=== PATIENT | male | born 1970 | race Caucasian/White ===

== ENCOUNTER 2019-01-29 13:53 | Emergency (ER) | payer MEDICAID, MEDICARE ==
[2019-01-29 14:15] VITALS: BP 145/85
--- NOTE | 2019-01-29 14:27 | ED Physician Documentation ---
PD HPI UPPER EXT INJURY - Stated complaint Stated Complaint: WRIST PX - Chief complaint Chief Complaint: Ext Problem - History obtained from History obtained from: Family - History of Present Illness Location: Right (Left-handed gentleman had a blunt force injury to the anterior right wrist on the radial side about 4 days ago while working on something. He has increasing pain there that radiates up towards the lateral epicondyle of the left elbow with certain motions. No other injuries. He declines pain medication.) Review of Systems Constitutional: reports: Reviewed and negative Ears: reports: Reviewed and negative Nose: reports: Reviewed and negative PD PAST MEDICAL HISTORY - Past Medical History Past Medical History: No - Present Medications Home Medications: Ambulatory Orders Medication Instructions Recorded Confirmed Dicyclomine [Bentyl] 20 mg PO QID PRN #15 capsule 01/29/19 - Allergies Allergies/Adverse Reactions: Allergies Allergy/AdvReac Type Severity Reaction Status Date / Time No Known Drug Allergies Allergy Verified 01/29/19 14:15 - Family History Family history: reports: Non contributory PD ED PE NORMAL - Vitals Vital signs reviewed: Yes - General General: Alert and oriented X 3, No acute distress - Extremities Extremities: Other (Right distal radius is tender but without limited range of motion, neurovascular compromise, or swelling or ecchymosis at this juncture.) - Neuro Neuro: Alert and oriented X 3, Normal speech Results - Vitals Vitals: Vital Signs - 24 hr 01/29/19 14:11 Temperature 37.1 C Heart Rate 100 Respiratory 14 Rate Blood Pressure 145/85 H O2 Saturation 95 Oxygen O2 Source Room air - Rads (name of study) R wrist 4v Radiology: EMP read contemporaneously (normal) PD MEDICAL DECISION MAKING - ED course ED course: Ancillary complaints of abdominal cramping after eating meat yesterday. Its intermittent and generalized. On examination he was nontender. He was advised to return immediately if it becomes constant, settles into 1 spots or worsens. Or if not better in the next 12 hours. Departure - Departure Disposition: 01 Home, Self Care Clinical Impression: Contusion of right wrist Qualifiers: Encounter type: initial encounter Qualified Code(s): S60.211A - Contusion of right wrist, initial encounter Condition: Good Record reviewed to determine appropriate education?: Yes Instructions: ED Splint Care Velcro, ED Sprain Wrist Prescriptions: Dicyclomine [Bentyl] 20 mg PO QID PRN #15 capsule PRN Reason: Abdominal Pain Comments: Wear the splint as needed for comfort, you do not have to wear it all the time. Ibuprofen as needed for pain. Follow-up with your doctor in a week or 2 if not improved. Your blood pressure was elevated today on check into the emergency department. This does not mean that you have hypertension, it is a common phenomenon to come to the emergency department and have elevated blood pressure. I recommend that you see your primary care physician within the week to have it rechecked when you are feeling better.
--- NOTE | 2019-01-29 15:06 | XRAY Report ---
Reason: wrist inj Procedure Date: 01/29/2019 Accession Number: [id number] / [id number] Procedure: XR - Wrist 4 View RT CPT Code: FULL RESULT: EXAM: RIGHT WRIST RADIOGRAPHY. EXAM DATE: 01/29/2019 02:54 PM. CLINICAL HISTORY: Wrist injury. COMPARISON: None. TECHNIQUE: 4 views. FINDINGS: Bones: Normal. No fractures or bone lesions. Scaphoid appears intact on dedicated views. Joints: Normal. No subluxations. Soft Tissues: Normal. No soft tissue swelling. IMPRESSION: Normal wrist radiography. [facility]
[2019-01-29] MEDS ORDERED: DICYCLOMINE 10 MG CAPSULE PO STA (15:11)
== END 2019-01-29 15:22 | disposition home or self-care (01) ==
LOC: ED 13:53
DX: S60.211A Contusion of right wrist, initial encounter (principal); W22.8XXA Striking against or struck by other objects, initial encounter; R10.84 Generalized abdominal pain; R03.0 Elevated blood-pressure reading, without diagnosis of hypertension
CPT/HCPCS: 73110; 99283; A9270

== ENCOUNTER 2019-05-11 11:35 | Emergency (ER) | payer MEDICAID, MEDICARE ==
[2019-05-11 11:50] VITALS: BP 115/81
--- NOTE | 2019-05-11 12:23 | ED Physician Documentation ---
PD HPI WOUND RECHECK - Stated complaint Stated Complaint: R ARM BITE-SWELLING HOT - Chief complaint Chief Complaint: Wound - Histroy obtained from History obtained from: Patient - History of Present Illness Location: Right Upper Extremity (Healthy 49-year-old gentleman got a bug bite that was initially itchy and now more painful to the right elbow yesterday. No fevers or chills. He did not really see anything get him.) Review of Systems Constitutional: denies: Fever, Chills Throat: reports: Reviewed and negative Cardiac: reports: Reviewed and negative Respiratory: reports: Reviewed and negative PD PAST MEDICAL HISTORY - Past Surgical History Past Surgical History: No - Present Medications Home Medications: Ambulatory Orders Medication Instructions Recorded Confirmed Cephalexin [Keflex] 500 mg PO Q6H #28 capsule 05/11/19 predniSONE [Deltasone] 60 mg PO DAILY 5 Days tablet 05/11/19 - Allergies Allergies/Adverse Reactions: Allergies Allergy/AdvReac Type Severity Reaction Status Date / Time No Known Drug Allergies Allergy Verified 05/11/19 11:49 - Social History Does the pt smoke?: Yes Smoking Status: Current every day smoker Does the pt drink ETOH?: No Does the pt have substance abuse?: No PD ED PE NORMAL - Vitals Vital signs reviewed: Yes - General General: Alert and oriented X 3, No acute distress - Derm Derm: Other (He is very well tattooed on the upper extremities, making subtle skin differentiation somewhat difficult. There is a little scab between the right olecranon and lateral epicondyle with some surrounding warmth and potentially redness. No limited range of motion or obvious olecranon bursitis.) - Neuro Neuro: Alert and oriented X 3, Normal speech Results - Vitals Vitals: Vital Signs - 24 hr 05/11/19 11:47 Temperature 36.2 C L Heart Rate 83 Respiratory 18 Rate Blood Pressure 115/81 H O2 Saturation 96 Oxygen O2 Source Room air PD MEDICAL DECISION MAKING - ED course ED course: This is most likely a mosquito bite or infected bug bite, we will treat with steroids and Keflex. No evidence of serious or systemic illness. Departure - Departure Disposition: 01 Home, Self Care Clinical Impression: Nonvenomous bug bite of shoulder or upper arm, infected Qualifiers: Encounter type: initial encounter Laterality: right Qualified Code(s): S40.261A - Insect bite (nonvenomous) of right shoulder, initial encounter; S40.861A - Insect bite (nonvenomous) of right upper arm, initial encounter; L08.9 - Local infection of the skin and subcutaneous tissue, unspecified; W57.XXXA - Bitten or stung by nonvenomous insect and other nonvenomous arthropods, initial encounter Condition: Good Record reviewed to determine appropriate education?: Yes Instructions: ED Infec Skin Cellulitis Prescriptions: Cephalexin [Keflex] 500 mg PO Q6H #28 capsule predniSONE [Deltasone] 60 mg PO DAILY 5 Days tablet Comments: Return immediately for any fevers or limited range of motion of the arm or if worse. Follow-up with your doctor early next week if not better. Your blood pressure was elevated today on check into the emergency department. This does not mean that you have hypertension, it is a common phenomenon to come to the emergency department and have elevated blood pressure. I recommend that you see your primary care physician within the week to have it rechecked when you are feeling better.
== END 2019-05-11 12:31 | disposition home or self-care (01) ==
LOC: ED 11:35
DX: S40.861A Insect bite (nonvenomous) of right upper arm, initial encounter (principal); L08.9 Local infection of the skin and subcutaneous tissue, unspecified; W57.XXXA Bitten or stung by nonvenomous insect and other nonvenomous arthropods, initial encounter; R03.0 Elevated blood-pressure reading, without diagnosis of hypertension; F17.200 Nicotine dependence, unspecified, uncomplicated
CPT/HCPCS: 99282; 99283

== ENCOUNTER 2019-09-15 23:17 | Emergency (ER) | payer MEDICAID, MEDICARE ==
[2019-09-15 23:25] VITALS: BP 126/78
--- NOTE | 2019-09-16 00:38 | ED Physician Documentation ---
PD HPI URI - Stated complaint Stated Complaint: L EAR PX/COLD - Chief complaint Chief Complaint: Heent - History obtained from History obtained from: Patient - History of Present Illness Timing - onset: How many days ago (2) Timing duration: Days (2) Timing details: Gradual onset, Still present Associated symptoms: Fever, Ear pain (the past several hours), Nasal congestion, Sinus pain (more to the left), Dry cough Contributing factors: No: Sick contact, Unimmunized Similar symptoms before: Has not had sx before Recently seen: Not recently seen Review of Systems Constitutional: reports: Chills, Myalgias. denies: Fever Ears: reports: Ear pain (today) Nose: reports: Rhinorrhea / runny nose, Congestion, Sinus pressure / pain Throat: denies: Sore throat Respiratory: reports: Cough GI: denies: Nausea, Vomiting, Diarrhea PD PAST MEDICAL HISTORY - Past Medical History Past Medical History: No - Past Surgical History Past Surgical History: Yes Ortho: ACL reconstruction, Rotator cuff repair - Present Medications Home Medications: Ambulatory Orders Medication Instructions Recorded Confirmed Cetirizine [ZyrTEC] 10 mg PO DAILY #15 tablet 09/16/19 dexAMETHasone [Decadron] 4 mg PO DAILY #5 tablet 09/16/19 diphenhydrAMINE [Benadryl] 25 mg PO Q4-6H PRN #20 capsule 09/16/19 - Allergies Allergies/Adverse Reactions: Allergies Allergy/AdvReac Type Severity Reaction Status Date / Time No Known Drug Allergies Allergy Verified 09/15/19 23:24 - Social History Does the pt smoke?: Yes Smoking Status: Current every day smoker Does the pt drink ETOH?: No Does the pt have substance abuse?: No - Immunizations Immunizations are current?: No PD ED PE NORMAL - Vitals Vital signs reviewed: Yes - General General: Alert and oriented X 3, No acute distress, Well developed/nourished - HEENT HEENT: Pharynx benign. No: Ears normal (fluid behind with pressure appearance, but no redness. ) - Neck Neck: Supple, no meningeal sign, No adenopathy - Cardiac Cardiac: RRR, No murmur - Respiratory Respiratory: Clear bilaterally - Abdomen Abdomen: Normal bowel sounds, Soft - Derm Derm: Normal color, Warm and dry Results - Vitals Vitals: Vital Signs - 24 hr 09/15/19 23:20 Temperature 36.5 C Heart Rate 81 Respiratory 18 Rate Blood Pressure 126/78 O2 Saturation 97 Oxygen O2 Source Room air PD MEDICAL DECISION MAKING - ED course Complexity details: considered differential (URI symptoms with serous otitis. No obvious bacterial infection.), d/w patient Departure - Departure Disposition: 01 Home, Self Care Clinical Impression: Upper respiratory infection Qualifiers: URI type: unspecified URI Qualified Code(s): J06.9 - Acute upper respiratory infection, unspecified Acute serous otitis media Qualifiers: Laterality: left Recurrence: non-recurrent Qualified Code(s): H65.02 - Acute serous otitis media, left ear Condition: Stable Record reviewed to determine appropriate education?: Yes Instructions: ED Otitis Media Serous Adult Follow-Up: YONAS CUI MD [Primary Care Provider] - Prescriptions: Cetirizine [ZyrTEC] 10 mg PO DAILY #15 tablet dexAMETHasone [Decadron] 4 mg PO DAILY #5 tablet diphenhydrAMINE [Benadryl] 25 mg PO Q4-6H PRN #20 capsule PRN Reason: Cough Comments: There is fluid and pressure behind the eardrum but it does not look like a separate infection. Presume its pressure buildup from the head cold and improper drainage through the sinus and eustachian tube. Use cetirizine antihistamine daily and Decadron steroid daily for the next 5 days. Perhaps even longer with the cetirizine antihistamine. In the short-term add diphenhydramine antihistamine every 4-6 hours for congestion and cough. Tylenol and/or ibuprofen for pains. The fluid in pressure should decrease over the next day or so with the medicines. Discharge Date/Time: 09/16/19 01:22
[2019-09-16] MEDS ORDERED: ACETAMINOPHEN 325 MG TABLET PO STA (00:51)
[2019-09-16] MEDS ORDERED: CHERRY SYRUP 10 ML UDC PO ONE (00:51)
[2019-09-16] MEDS ORDERED: CETIRIZINE 10 MG TABLET PO STA (00:51)
[2019-09-16] MEDS ORDERED: IBUPROFEN 600 MG TABLET PO STA (00:51)
[2019-09-16] MEDS ORDERED: diphenhydrAMINE 25 MG CAPSULE PO STA (00:51)
[2019-09-16] MEDS ORDERED: DEXAMETHASONE 10 MG/ML VIAL PO STA (00:51)
== END 2019-09-16 01:22 | disposition home or self-care (01) ==
LOC: ED 23:17
DX: J06.9 Acute upper respiratory infection, unspecified (principal); H65.02 Acute serous otitis media, left ear; F17.200 Nicotine dependence, unspecified, uncomplicated
CPT/HCPCS: 99283; 99284; A9270

== ENCOUNTER 2019-12-03 07:51 | Emergency (ER) | payer MEDICAID, MEDICARE ==
[2019-12-03] MEDS ORDERED: ONDANSETRON 4 MG/2 ML VIAL IVP STA (08:11)
[2019-12-03] MEDS ORDERED: KETOROLAC 30 MG/ML VIAL IVP STA (08:11)
[2019-12-03] MEDS ORDERED: SODIUM CHLORIDE 0.9% 1,000 ML IV ONE (08:11)
[2019-12-03] MEDS ORDERED: LOPERAMIDE 2 MG CAPSULE PO STA (08:15)
--- NOTE | 2019-12-03 08:16 | ED Physician Documentation ---
PD HPI NVD - Stated complaint Stated Complaint: ABD PX - Chief complaint Chief Complaint: Abd Pain - History obtained from History obtained from: Patient (Otherwise healthy 49-year-old gentleman became acutely sick last night with stomach cramps and diarrhea. Same time as his geylunph-ai-smi got sick with gastroenteritis. He denies fevers, recent travel, respiratory symptoms. He has no underlying health issues.) Review of Systems Constitutional: reports: Sweats. denies: Fever, Chills Throat: denies: Sore throat Cardiac: denies: Chest pain / pressure, Palpitations Respiratory: denies: Dyspnea, Cough PD PAST MEDICAL HISTORY - Past Surgical History Past Surgical History: Yes Ortho: ACL reconstruction, Rotator cuff repair - Present Medications Home Medications: Ambulatory Orders Medication Instructions Recorded Confirmed Cetirizine [ZyrTEC] 10 mg PO DAILY #15 tablet 09/16/19 dexAMETHasone [Decadron] 4 mg PO DAILY #5 tablet 09/16/19 diphenhydrAMINE [Benadryl] 25 mg PO Q4-6H PRN #20 capsule 09/16/19 Dicyclomine [Bentyl] 20 mg PO QID PRN #15 capsule 12/03/19 Loperamide [Imodium] 2 mg PO QID PRN #10 capsule 12/03/19 - Allergies Allergies/Adverse Reactions: Allergies Allergy/AdvReac Type Severity Reaction Status Date / Time No Known Drug Allergies Allergy Verified 12/03/19 08:06 - Social History Does the pt smoke?: Yes Smoking Status: Current every day smoker Does the pt drink ETOH?: No Does the pt have substance abuse?: No - Immunizations Immunizations are current?: No PD ED PE NORMAL - Vitals Vital signs reviewed: Yes - General General: Alert and oriented X 3, No acute distress - HEENT HEENT: Moist mucous membranes - Cardiac Cardiac: RRR, No murmur - Respiratory Respiratory: No respiratory distress, Clear bilaterally - Abdomen Abdomen: Normal bowel sounds, Soft, Non tender - Back Back: No CVA TTP, No spinal TTP - Derm Derm: Normal color, Warm and dry - Extremities Extremities: No edema, No calf tenderness / cord - Neuro Neuro: Alert and oriented X 3, Normal speech Results - Vitals Vitals: Vital Signs - 24 hr 12/03/19 08:04 Temperature 35.9 C L Heart Rate 108 H Respiratory 16 Rate Blood Pressure 116/76 O2 Saturation 98 Oxygen O2 Source Room air - Labs Labs: Laboratory Tests 12/03/19 08:15 Sodium 140 Potassium 4.1 Chloride 103 Carbon Dioxide 25 Anion Gap 12.0 BUN 19 Creatinine 0.9 Estimated GFR (MDRD) 90 Glucose 120 H Calcium 9.2 Total Bilirubin 0.8 AST 23 ALT 16 Alkaline Phosphatase 46 Total Protein 8.1 Albumin 4.5 Globulin 3.6 Albumin/Globulin Ratio 1.3 Lipase 34 PD MEDICAL DECISION MAKING - ED course ED course: This is a 49-year-old gentleman with benign viral sounding diarrhea. No risk factors for C. difficile. His [id number] is ill with gastroenteritis at the same time. He is given IV fluids, Zofran, Toradol, Imodium. 3 This is young man with what sounds like viral gastroenteritis, contacts with same. No fever or abdominal tenderness. Feeling better after meds and IV fluids here. Departure - Departure Disposition: 01 Home, Self Care Clinical Impression: Gastroenteritis Condition: Good Record reviewed to determine appropriate education?: Yes Instructions: ED Gastroenteritis Viral Prescriptions: Dicyclomine [Bentyl] 20 mg PO QID PRN #15 capsule PRN Reason: Abdominal Pain Loperamide [Imodium] 2 mg PO QID PRN #10 capsule PRN Reason: Diarrhea Comments: Return in 12 to 24 hours if not better, anytime if worsening or if running a fever.
[2019-12-03 08:41] LABS: ALBUMIN 4.5 g/dL (3.2-5.5); ALBUMIN/GLOBULIN RATIO 1.3 (1.0-2.2); BILIRUBIN,TOTAL 0.8 mg/dL (0.2-1.0); CALCIUM 9.2 mg/dL (8.5-10.3); CREATININE 0.9 mg/dL (0.6-1.2); TOTAL PROTEIN 8.1 g/dL (6.7-8.2)
[2019-12-03 09:21] VITALS: BP 116/80
== END 2019-12-03 09:21 | disposition home or self-care (01) ==
LOC: ED 07:51
DX: K52.9 Noninfective gastroenteritis and colitis, unspecified (principal); F17.210 Nicotine dependence, cigarettes, uncomplicated
CPT/HCPCS: 36415; 80053; 83690; 96374; 99283; 99284; A9270

== ENCOUNTER 2020-12-23 07:00 | Outpatient (CLI) | payer MEDICAID, MEDICARE ==
--- NOTE | 2020-12-23 15:25 | XRAY Report ---
PROCEDURE: Chest 2 View X-Ray INDICATIONS: ACUTE UPPER RESPIRATORY INFECTION UNSPECIFIED TECHNIQUE: 2 view(s) of the chest. COMPARISON: None. FINDINGS: Surgical changes and devices: None. Lungs and pleura: No pleural effusions or pneumothorax. Lungs are clear. Mediastinum: Mediastinal contours are normal. Heart size is normal. Bones and chest wall: No suspicious bony abnormalities. Soft tissues appear unremarkable. IMPRESSION: No acute cardiopulmonary pathology. Reviewed by: Asim Lu MD on 12/23/2020 3:24 PM PDT Approved by: Asim uL MD on 12/23/2020 3:24 PM PDT Station ID: [id number]
== END 2020-12-23 23:59 | disposition home or self-care (01) ==
LOC: DI.N 07:00
PROVIDERS: ATTEND Nurse Practitioner
DX: J06.9 Acute upper respiratory infection, unspecified (principal); J02.9 Acute pharyngitis, unspecified; Z20.822 Contact with and (suspected) exposure to COVID-19
CPT/HCPCS: 71046; 87070; U0004

== ENCOUNTER 2020-12-23 13:59 | Outpatient (CLI) | payer MEDICARE | END 2020-12-23 23:59 | disposition home or self-care (01) | LOC: LAB.R 13:59 | PROVIDERS: ATTEND Nurse Practitioner | DX: J02.9 Acute pharyngitis, unspecified (principal); Z20.822 Contact with and (suspected) exposure to COVID-19 | CPT/HCPCS: 87070 ==

== ENCOUNTER 2022-01-07 09:20 | Outpatient (CLI) | payer BC, MEDICARE ==
[2022-01-07 12:24] LABS: BASOPHILS % (AUTO) 0.6 %; EOSINOPHILS # (AUTO) 0.3 10^3/uL (0.0-0.7); EOSINOPHILS % (AUTO) 4.9 %; HGB - HEMOGLOBIN 15.3 g/dL (14.0-18.0); LYMPHOCYTES # (AUTO) 1.3 10^3/uL (1.5-3.5); LYMPHOCYTES % (AUTO) 21.4 %; MEAN CORPUSCULAR HEMOGLOBIN 29.4 pg (27.0-31.0); MEAN CORPUSCULAR HGB CONC 33.3 g/dL (32.0-36.0); MEAN CORPUSCULAR VOLUME 88.5 fL (80.0-94.0); MEAN PLATELET VOLUME 10.2 fL (7.4-11.4); MONOCYTES # (AUTO) 0.8 10^3/uL (0.0-1.0); MONOCYTES % (AUTO) 13.6 %; NEUTROPHILS # (AUTO) 3.7 10^3/uL (1.5-6.6); NEUTROPHILS % (AUTO) 59.3 %; PLT - PLATELET COUNT 206 10^3/uL (130-450); RED CELL DISTRIBUTION WIDTH 12.8 % (12.0-15.0); WHITE BLOOD COUNT 6.2 x10^3/uL (4.8-10.8)
[2022-01-07 12:45] LABS: ALBUMIN 4.3 g/dL (3.2-5.5); ALBUMIN/GLOBULIN RATIO 1.3 (1.0-2.2); ALKALINE PHOSPHATASE 45 IU/L (42-121); ALT ALANINE AMINOTRANSFERASE 37 IU/L (10-60); AST ASPARTATE AMINOTRANSFERASE 34 IU/L (10-42); BILIRUBIN,TOTAL 0.7 mg/dL (0.2-1.0); BUN - BLOOD UREA NITROGEN 13 mg/dL (6-20); CALCIUM 9.4 mg/dL (8.5-10.3); CARBON DIOXIDE - CO2 29 mmol/L (21-32); CHLORIDE 102 mmol/L (101-111); CHOL/HDL RATIO 3.6 (<5.0); CHOLESTEROL 174 mg/dL; GFR - MDRD 79 (>89); GLUCOSE 86 mg/dL (70-100); HDL CHOLESTEROL 49 mg/dL; LDL CHOLESTEROL,CALCULATED 105 mg/dL; LDL/HDL RATIO 2.1 (<3.6); POTASSIUM 4.3 mmol/L (3.5-5.0); SODIUM 141 mmol/L (135-145); TOTAL PROTEIN 7.6 g/dL (6.7-8.2); TRIGLYCERIDES 100 mg/dL; URIC ACID 5.8 mg/dL (2.6-7.2); VLDL CHOLESTEROL 20 mg/dL
== END 2022-01-07 09:21 | disposition home or self-care (01) ==
LOC: LAB.N 09:20
PROVIDERS: ATTEND Physician Assistant
DX: H53.9 Unspecified visual disturbance (principal); Z13.220 Encounter for screening for lipoid disorders; M79.674 Pain in right toe(s)
CPT/HCPCS: 36415; 80053; 80061; 83721; 84550; 85025

== ENCOUNTER 2022-01-13 08:00 | Outpatient (CLI) | payer BC, MEDICARE | END 2022-01-13 08:01 | disposition home or self-care (01) | LOC: LAB.N 08:00 | PROVIDERS: ATTEND Nurse Practitioner | DX: Z20.822 Contact with and (suspected) exposure to COVID-19 (principal) ==

== ENCOUNTER 2022-01-23 08:02 | Outpatient (CLI) | payer BC, MEDICARE ==
--- NOTE | 2022-01-23 09:47 | CT Report ---
PROCEDURE: Low Dose Lung Cancer Screen INDICATIONS: LUNG CA SCREENING TECHNIQUE: Noncontrast low-dose images were acquired from the pulmonary apices to the posterior costophrenic ang les. Multiplanar MIP reformats were then acquired. For radiation dose reduction, the following was used: automated exposure control, adjustment of mA and/or kV according to patient size. COMPARISON: Chest x-ray, 12/23/2020. FINDINGS: Image quality: Excellent. Lungs and pleura: Lung nodules are present. Nodule 1: 0.8 cm; left lower lobe; series 4 image 166; groundglass. Nodule 2: 0.3 cm; left major fissure; series 4 image 119; solid. Nodule 3: 0.3 cm; right lower lobe; series 4 image 236; solid. Subpleural scars and atelectasis in lingula and right middle lobe. No acute pulmonary opacities. No p leural effusion. Mediastinum: Heart size is normal. No pericardial effusion. No mediastinal adenopathy by size crit eria. Thoracic aorta and central pulmonary arteries are normal in size. Esophagus is normal in sandy valeria. No hiatal hernia. Bones and chest wall: No suspicious bony lesions. No vertebral body compression fractures. No axil shawna or supraclavicular adenopathy by size criteria. The thyroid is normal in size and there are no incidental findings. Abdomen: Visualized upper abdomen solid organs and bowel loops appear normal in the absence of contr ast. IMPRESSION: 1. There are 3 lung nodules. ACR Lung RADS category: 3, probably benign. A 6 month follow-up CT is re commended. Fleischner Society criteria for SOLID lung nodule followup. Nodule size (mm)Low-risk patientHigh-risk patient "d4No follow-up neededFollow-up at 12 mo; if no change, no further follow-up >[id number] CT at 12 mo; if no change, no further follow-up needed.Initial follow-up CT at 6-12 mo, then 18-24 mo if no change. >6-8Initial follow-up CT at 6-12 mo, then 18-24 mo if no change. Initial follow-up CT at 3-6 mo, then 9-12 mo and 24 mo if no change. >8Follow-up CT at 3, 9, 24 mo. Or PET and/or biopsy.Same as for low-risk pts. Fleischner Society criteria for SUB-SOLID lung nodule followup. Solitary pure ground-glass nodules 5 mm or lessNo followup needed. >5 mm3 mo follow-up CT to confirm persistence. Then annual CT for 3 years. Part-solid nodules3 mo follow-up CT to confirm persistence. If persistent with solid component <5 mm , annual CT for at least 3 years. If solid component is 5 mm or more, biopsy or surgical resection. Consider PET-CT for lesions > 10 mm. Multiple sub-solid nodules Pure ground glass nodules [address] at 2 and 4 years. Pure ground glass nodules >5 mm without dominant lesion. [address] to confirm persistence, then annual followup CT for at least 3 years. Dominant nodule(s) with part-solid or solid component. [address] to confirm persistence. If persistent, consider biopsy or surgical resection, rosario if lesions have >5 mm solid component. Reviewed by: Ree Billingsley MD on 01/23/2022 8:46 AM [facility] Approved by: Ree Billingsley MD on 01/23/2022 8:46 AM [facility] Station ID: [id number]
== END 2022-01-23 08:03 | disposition home or self-care (01) ==
LOC: DI 08:02
PROVIDERS: ATTEND Physician Assistant
DX: Z12.2 Encounter for screening for malignant neoplasm of respiratory organs (principal); R91.8 Other nonspecific abnormal finding of lung field

== ENCOUNTER 2022-10-05 17:59 | Outpatient (CLI) | payer BC ==
--- NOTE | 2022-10-06 09:52 | XRAY Report ---
PROCEDURE: Ankle 2 View LT INDICATIONS: UNSPECIFIED SUPERFICIAL INJURY OF LEFT ANKLE TECHNIQUE: 2 views of the ankle were acquired. COMPARISON: None FINDINGS: Bones: No fractures or dislocations. Ankle mortise is normally aligned. No suspicious bony lesions . Soft tissues: No tibiotalar joint effusion. Achilles tendon appears normal. IMPRESSION: Normal left ankle Reviewed by: Raffaele Martinez on 10/06/2022 9:51 AM [facility] Approved by: Raffaele Martinez on 10/06/2022 9:51 AM [facility] Station ID: [id number]
== END 2022-10-05 18:00 | disposition home or self-care (01) ==
LOC: DI 17:59
PROVIDERS: ATTEND Nurse Practitioner
DX: S90.912A Unspecified superficial injury of left ankle, initial encounter (principal)

== ENCOUNTER 2023-12-29 07:59 | Outpatient (CLI) | payer OTHER ==
[2023-12-29 08:14] LABS: BASOPHILS # (AUTO) 0.1 10^3/uL (0.0-0.1); BASOPHILS % (AUTO) 1.1 %; EOSINOPHILS # (AUTO) 0.3 10^3/uL (0.0-0.7); EOSINOPHILS % (AUTO) 4.5 %; HCT - HEMATOCRIT 45.3 % (42.0-52.0); LYMPHOCYTES # (AUTO) 1.7 10^3/uL (1.5-3.5); LYMPHOCYTES % (AUTO) 26.5 %; MEAN CORPUSCULAR HEMOGLOBIN 29.1 pg (27.0-31.0); MEAN CORPUSCULAR HGB CONC 33.1 g/dL (32.0-36.0); MEAN CORPUSCULAR VOLUME 87.8 fL (80.0-94.0); MEAN PLATELET VOLUME 9.1 fL (7.4-11.4); MONOCYTES # (AUTO) 0.6 10^3/uL (0.0-1.0); MONOCYTES % (AUTO) 9.2 %; NEUTROPHILS # (AUTO) 3.7 10^3/uL (1.5-6.6); NEUTROPHILS % (AUTO) 58.4 %; PLT - PLATELET COUNT 210 10^3/uL (130-450); RED BLOOD COUNT 5.16 10^6/uL (4.70-6.10); RED CELL DISTRIBUTION WIDTH 12.7 % (12.0-15.0); WHITE BLOOD COUNT 6.4 x10^3/uL (4.8-10.8)
== END 2023-12-29 08:00 | disposition home or self-care (01) ==
LOC: LAB 07:59
PROVIDERS: ATTEND Physician Assistant
DX: B18.2 Chronic viral hepatitis C (principal)
CPT/HCPCS: 36415; 85025